=== PATIENT | female | born 1985 | race African-American/Black ===

== ENCOUNTER 2024-06-01 10:36 | Emergency (ER) | payer BC, OTHER ==
[2024-06-01 11:27] LABS: Specific Gravity 1.022 (1.005-1.030); Sqamous Epithelial <5 /HPF (None Seen); Urine Bacteria <20 /HPF (<20); Urine Bilirubin NEGATIVE (Negative); Urine Blood Negative (Negative); Urine Clarity Clear (Clear); Urine Color Light-Yellow (Yellow); Urine Culture Reflex Order NOT NEEDED; Urine Glucose NEGATIVE (Negative); Urine Ketones NEGATIVE (Negative); Urine Micro Reflex YN NO BILL MICROSCOPIC; Urine Mucus 1+ /HPF (None Seen); Urine Nitrite NEGATIVE (Negative); Urine Protein TRACE (Negative); Urine RBC <5 /HPF (None Seen); Urine Urobilinogen Normal (Normal); Urine WBC <5 /HPF (<5)
--- NOTE | 2024-06-01 12:08 | RAD REPORT ---
EXAM DESCRIPTION: CTSpine Lumbar Wo Con06/01/2024 11:37 am CLINICAL HISTORY: Back pain/radiculopathy COMPARISON: None TECHNIQUE: Computed axial tomography lumbar spine was obtained with coronal and sagittal reconstruct ion. All CT scans are performed using dose optimization technique as appropriate and may include automated exposure control or mA/KV adjustment according to patient size. FINDINGS: Mild posterior subluxation of L2 on L3 and L5 on S1 No fracture Disc bulge and osteophyte L2-3 narrow the thecal sac at 8.5 millimeters. Disc bulge, osteophytes and facet hypertrophy L5-S1 results in bilateral foraminal stenosis 2 millimeter calculus right kidney IMPRESSION: Negative for a lumbar fracture. 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
[2024-06-01] MEDS ORDERED: dexAMETHasone 10 MG/ML VIAL ONE (12:16)
[2024-06-01] MEDS ORDERED: NA CHLORIDE 0.9% 1,000 ML ONE (12:16)
[2024-06-01] MEDS ORDERED: CYCLOBENZAPRINE 10 MG TAB ONE (12:16)
[2024-06-01] MEDS ORDERED: KETOROLAC 30 MG/ML INJ ONE (12:16)
--- NOTE | 2024-06-01 13:04 | ER ---
[facility] Name: Vijaya Yee Age: 38 yrs Sex: Female : 1985 Arrival Date: 06/01/2024 Time: 10:36 Bed 19 Private MD: Diagnosis: Low back pain Presentation: 06/01 11:01 Chief complaint: Severe low back pain that radiates to groin and bilateral leg weakness hb that started after bending over yesterday. Coronavirus screen: At this time, the client does not indicate any symptoms associated with coronavirus-19. Ebola Screen: No symptoms or risks identified at this time. Initial Sepsis Screen: Does the patient meet any 2 criteria? No. Patient's initial sepsis screen is negative. Does the patient have a suspected source of infection? No. Patient's initial sepsis screen is negative. Risk Assessment: Do you want to hurt yourself or someone else? Patient reports no desire to harm self or others. Onset of symptoms was May 31, 2024. 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 - Infectious Disease History:: Denies. - Social history:: Smoking status: Patient denies any tobacco usage or history of. Screenin:05 [facility] ED Fall Risk Assessment (Adult) History of falling in the last 3 months, me1 including since admission No falls in past 3 months (0 pts) Confusion or Disorientation No (0 pts) Intoxicated or Sedated No (0 pts) Impaired Gait No (0 pts) Mobility Assist Device Used No (0 pt) Altered Elimination No (0 pt) Score/Fall Risk Level 0 - 2 = Low Risk Maintained a safe environment, Provided non-skid footwear, Hourly rounding (assess needs \T\ fall precautionary measures) done. Abuse screen: Denies threats or abuse. Nutritional screening: No deficits noted. Tuberculosis screening: No symptoms or risk factors identified. Assessment: 12:05 General: Appears uncomfortable, well groomed, well developed, well nourished, Behavior me1 is calm, cooperative, appropriate for age. General: Severe low back pain that radiates to groin and bilateral leg weakness that started after bending over yesterday. . Pain:. Pain: Complains of pain in lumbar area Pain radiates to pelvis Pain currently is 9 out of 10 on a pain scale. Quality of pain is described as shooting, Pain began suddenly, 1 day ago. Is continuous. 12:05 Neuro: Level of Consciousness is awake, alert, obeys commands, Oriented to person, me1 place, time, situation, Appropriate for age Reports weakness in right leg and left leg. Cardiovascular: Patient's skin is warm and dry. Respiratory: Airway is patent Respiratory effort is even, unlabored, Respiratory pattern is regular, symmetrical. GI: No signs and/or symptoms were reported involving the gastrointestinal system. : No signs and/or symptoms were reported regarding the genitourinary system. EENT: No signs and/or symptoms were reported regarding the EENT system. Derm: Skin is intact, is healthy with good turgor, Skin is pink, warm \T\ dry. Musculoskeletal: Reports weakness in right leg and left leg. Injury Description: back pain that started after bending over yesterday, Denies injury. Vital Signs: 11:01 BP 132 / 86; Pulse 94; Resp 18; Temp 97.2; Pulse Ox 96% on R/A; Weight 114.31 kg; hb Height 5 ft. 11 in. ; Pain 9/10; 12:15 BP 130 / 83; Pulse 82; Resp 15; Pulse Ox 100% on R/A; me1 13:00 BP 123 / 90; Pulse 80; Resp 16; Temp 98.1; Pulse Ox 99% ; me1 11:01 Body Mass Index 35.15 (114.31 kg, 180.34 cm) hb 11:01 Pain Scale: Adult hb ED Course: 10:39 Patient arrived in ED. mr 10:51 Alicia Bass PA-C is PHCP. sb4 10:51 Jose Chaves MD is Attending Physician. sb4 11:03 Triage completed. hb 11:06 Arm band placed on. hb 11:11 Inserted saline lock: 20 gauge in left antecubital area, using aseptic technique. bc6 Flushed with 10 mL NS. 11:18 Test, Urine Sent. bc6 11:18 UAM Sent. bc6 11:39 CT Lumbar Spine Wo Con In Process Unspecified. EDMS 12:05 Patient has correct armband on for positive identification. Bed in low position. Call me1 light in reach. Side rails up X2. Provided Education on: POC. Verbalized understanding. . Client placed on continuous cardiac and pulse oximetry monitoring. NIBP monitoring applied. Pulse ox on. NIBP on. 12:05 No provider procedures requiring assistance completed. me1 12:12 Elli Carlos, RN is Primary Nurse. me1 13:20 IV discontinued, intact, bleeding controlled, No redness/swelling at site. Pressure me1 dressing applied. Administered Medications: 12:23 Drug: NS 0.9% IV 1000 ml IV at 1 bolus Per protocol; 1000 mL bolus Route: IV; Rate: 1 me1 bolus; Site: left antecubital; 13:09 Follow up: Response: No adverse reaction; IV Status: Completed infusion; IV Intake: me1 1000ml 12:23 Drug: Ketorolac IVP 30 mg IVP once Route: IVP; Site: left antecubital; me1 13:09 Follow up: Response: No adverse reaction; Pain is decreased me1 12:24 Drug: Decadron - Dexamethasone IVP 10 mg IVP once Route: IVP; Site: left antecubital; me1 13:09 Follow up: Response: No adverse reaction; Pain is decreased me1 12:24 Drug: Cyclobenzaprine PO 10 mg PO once Route: PO; me1 13:10 Follow up: Response: No adverse reaction; Pain is decreased me1 Medication: 12:05 VIS not applicable for this client. me1 Intake: 13:09 IV: 1000ml; Total: 1000ml. me1 Outcome: 13:04 Discharge ordered by . sb4 13:20 Discharged to home ambulatory, me1 13:20 Condition: stable 13:20 Discharge instructions given to patient, Instructed on discharge instructions, follow up and referral plans. medication usage, Demonstrated understanding of instructions, follow-up care, medications, Prescriptions given X 3, 13:21 Patient left the ED. me1 Signatures: Dispatcher [employer] EDMS Nilda Peralta, Reg Reg mr Shonna Collins, RN RN Alicia Bass PA-C PAAdolfo sb4 Leelee Hsu bc6 Elli Carlos RN RN me1 Corrections: (The following items were deleted from the chart) 11:06 11:01 BP 132 / 86; Pulse 94bpm; Resp 18bpm; Pulse Ox 96% RA; Temp 97.2F; Pain 9/10, hb Adult; hb 13:05 11:01 Chief complaint: Severe low back pain that radiates to groin and bilateral leg me1 weakness that started after bending over yesterday. hb
--- NOTE | 2024-06-01 13:04 | EDPHYS ---
Physician Documentation [facility] Name: Vijaya Yee Age: 38 yrs Sex: Female : 1985 Arrival Date: 06/01/2024 Time: 10:36 Bed 19 Private MD: MAINOR Physician Jose Chaves HPI: 06/01 11:08 This 38 yrs old Black Female presents to ER via Ambulatory with complaints of Back Pain.sb4 11:08 The patient presents with pain that is acute, with no known mechanism of injury. The sb4 symptoms are located in the low back. Onset: The symptoms/episode began/occurred last night. The pain radiates to the pelvis. Associated signs and symptoms: The patient has no apparent associated signs or symptoms. The patient has experienced similar episodes in the past, several times, but today's symptoms are worse, more painful. The patient has not recently seen a physician. patient with intermittent low back pain x 5 years. has seen spine, had MRI, not sure what the results were. has not had any intervention done, does not take any daily medications for the pain. is visiting here. states the pain started last night and has persisted, which is unlike it normally is.states this morning she could barely get her legs to move and ended up urinating on herself. denies any numbness or tingling. is able to ambulate. 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 - Infectious Disease History:: Denies. - Social history:: Smoking status: Patient denies any tobacco usage or history of. ROS: 11:08 Constitutional: Negative for fever, chills, and weight loss, sb4 11:08 Back: Positive for pain at rest, pain with movement, 11:08 All other systems are negative, Exam: 11:11 Head/Face: Normocephalic, atraumatic. Eyes: Extra-ocular motions intact. Periorbital sb4 areas with no swelling, redness, or edema. ENT: Mucous membranes moist. 11:11 Skin: Warm, dry with normal turgor. Normal color with no rashes, no lesions, and no evidence of cellulitis. 11:11 Constitutional: The patient appears alert, awake, uncomfortable, 11:11 Neuro: Motor: moves all fours, Sensation: is normal, Gait: is steady, appropriate for age, Vital Signs: 11:01 BP 132 / 86; Pulse 94; Resp 18; Temp 97.2; Pulse Ox 96% on R/A; Weight 114.31 kg; hb Height 5 ft. 11 in. ; Pain 9/10; 12:15 BP 130 / 83; Pulse 82; Resp 15; Pulse Ox 100% on R/A; me1 13:00 BP 123 / 90; Pulse 80; Resp 16; Temp 98.1; Pulse Ox 99% ; me1 11:01 Body Mass Index 35.15 (114.31 kg, 180.34 cm) hb 11:01 Pain Scale: Adult hb MDM: 10:53 Patient medically screened. sb4 13:04 Data reviewed: vital signs, nurses notes, lab test result(s), radiologic studies, and sb4 as a result, I will discharge patient. Counseling: I had a detailed discussion with the patient and/or guardian regarding the historical points, exam findings, and any diagnostic results supporting the discharge/admit diagnosis, lab results, radiology results, the need for outpatient follow up, for definitive care, to return to the emergency department if symptoms worsen or persist or if there are any questions or concerns that arise at home. 06/01 11:05 Order name: UAM; Complete Time: 11: sb4 06/01 11:05 Order name: Test, Urine; Complete Time: : sb4 06/01 11:05 Order name: CT Lumbar Spine Wo Con; Complete Time: 12:09 sb4 06/01 11:05 Order name: IV Start; Complete Time: 11:11 sb4 Administered Medications: 12:23 Drug: NS 0.9% IV 1000 ml IV at 1 bolus Per protocol; 1000 mL bolus Route: IV; Rate: 1 me1 bolus; Site: left antecubital; 13:09 Follow up: Response: No adverse reaction; IV Status: Completed infusion; IV Intake: me1 1000ml 12:23 Drug: Ketorolac IVP 30 mg IVP once Route: IVP; Site: left antecubital; me1 13:09 Follow up: Response: No adverse reaction; Pain is decreased me1 12:24 Drug: Decadron - Dexamethasone IVP 10 mg IVP once Route: IVP; Site: left antecubital; me1 13:09 Follow up: Response: No adverse reaction; Pain is decreased me1 12:24 Drug: Cyclobenzaprine PO 10 mg PO once Route: PO; me1 13:10 Follow up: Response: No adverse reaction; Pain is decreased me1 Disposition: 13:04 Chart complete. Chart complete. sb4 Disposition Summary: 06/01/24 13:04 Discharge Ordered Notes: Location: Home sb4 Problem: an acute exacerbation sb4 Symptoms: have improved sb4 Condition: Stable sb4 Diagnosis - Low back pain sb4 Followup: sb4 - With: Private Physician - When: As needed - Reason: Recheck today's complaints, Re-evaluation by your physician Discharge Instructions: - Discharge Summary Sheet sb4 - Acute Back Pain, Adult sb4 - Spinal Stenosis, [id number] sb4 Forms: - Patient Portal Instructions sb4 - Leadership Thank You Letter sb4 Prescriptions: - Cyclobenzaprine 10 mg Oral Tablet - take 1 tablet ORAL route every 8 hours As needed; 30 tablet; Refills: 0, sb4 Product Selection Permitted - Diclofenac Sodium 75 mg Oral Tablet Sustained Release - take 1 tablet ORAL route 2 times per day; 30 tablet; Refills: 0, Product sb4 Selection Permitted - Prednisone 20 mg Oral Tablet - take 2 tablets ORAL route once daily for 5 days; 10 tablet; Refills: 0, Product sb4 Selection Permitted Signatures: Dispatcher [employer] Shonna Dave RN RN hb Brown, Sophia, PA-C PA-C sb4 Elli Carlos RN RN me1
[2024-06-01 13:28] VITALS: BP 123/90; TEMP 98.1; O2SAT 99
== END 2024-06-01 13:21 | disposition home or self-care (01) ==
LOC: ER 10:36
DX: M54.50 Low back pain, unspecified (principal)
CPT/HCPCS: 96361; 81001; 81025; 72131; 96375; 96374; 99284; J1100; J7030